=== PATIENT | female | born 1995 | race Two or more races ===

== ENCOUNTER 2025-04-29 17:11 | Emergency (ER) | payer BC ==
[~2025-04-29] VITALS: Ht 162.6 cm; Wt 81.6 kg
[2025-04-29 17:35] VITALS: BP 138/79; TEMP 98.1
[2025-04-29] MEDS ORDERED: IBUP-1957 PO (17:58)
[2025-04-29 18:05] VITALS: O2SAT 99
== END 2025-04-29 18:05 | disposition home or self-care (01) ==
LOC: ER 17:26
DX: M79.652 Pain in left thigh (principal); R58 Hemorrhage, not elsewhere classified; M25.512 Pain in left shoulder